=== PATIENT | male | born 1990 | race Caucasian/White ===

== ENCOUNTER 2016-12-11 23:12 | Emergency (ER) | payer OTHER ==
--- NOTE | 2016-12-12 03:06 | ED ORDER SUMMARY ---
..... Patient: MICHAELA KIMBROUGH OrderSheet [facility] VisitID: [id number] [place] [address] 26y, M Registration Date/Time: 12/11/2016 ORDER SHEET Weight: 77.1 kg (stated) Allergies: Penicillin GENERAL ORDERS: CBC w Diff Urgent (23:41 [facility] (Ack 23:43 [facility]) (23:57 EHassan R.N.) CMP Urgent (23:41 12/11/2016 [facility] (Ack 23:43 [facility]) (23:57 EHassan R.N.) Ethyl Alcohol Ur[facility] (23:41 [facility]2016 [facility] ([facility]ck 23:43 [facility]) (23:57 EHassan R.N.) Lipase Urgent (23:41 12/11/2016 [facility] (Ack 23:43 [facility]) (23:57 EHassan R.N.) Chest 2V Urgent (23:42 12/11/2016 [facility] (Ack 23:44 [facility]) (23:56 EHassan R.N.) Cervical Spine 2 or 3V Urgent (23:42 12/11/2016 [facility] (Ack 23:44 [facility]) (23:56 EHassan R.N.) Thoracic Spine 2V Urgent (23:42 12/11/2016 [facility] (Ack 23:44 [facility]) (23:56 EHassan R.N.) Lumbar Spine 2 or 3V Urgent (23:42 12/11/2016 [facility] (Ack 23:44 [facility]) (23:56 EHassan R.N.) Clavicle Left Urgent (23:43 12/11/2016 [facility] (Ack 23:44 [facility]) (23:56 EHassan R.N.) Urine Drug Screen Urgent (01:12 12/12/2016 [facility]) (Ack 1:18 [facility]) (2:51 Ludin R.N.) UA-Culture if indicated Urgent (01:12 12/12/2016 [facility]) (Ack 1:18 Feliz) (2:51 Ludin R.N.) MEDICATION ORDERS: IV FLUIDS: IV NS : initial bolus 1000 mL (1000 mL/hr), then 500 mL/hr for X2 (NOW) (23:40 12/11/2016 [facility]) (0:37 EHassan R.N.) Zofran IV 4 mg (NOW) (23:41 12/11/2016 [facility]) (0:42 EHassan R.N.) Toradol IV 15 mg (NOW) (23:43 12/11/2016 [facility]) (0:37 EHassan R.N.) ORDER SHEET NOTES: [Electronically signed by Benjamin Felix R.N. (03:02 12/12/2016)] [Electronically locked/signed by Benjamin Felix R.N. (03:02 12/12/2016)]
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
--- NOTE | 2016-12-12 03:06 | ED ORDER SUMMARY ---
..... Patient: MICHAELA KIMBROUGH OrderSheet [facility] VisitID: [id number] [place] [address] 26y, M Registration Date/Time: 12/11/2016 ORDER SHEET Weight: 77.1 kg (stated) Allergies: Penicillin GENERAL ORDERS: CBC w Diff Urgent (23:41 [facility] (Ack 23:43 [facility]) (23:57 EHassan R.N.) CMP Urgent (23:41 12/11/2016 [facility] (Ack 23:43 [facility]) (23:57 EHassan R.N.) Ethyl Alcohol Urgent (23:41 [facility] (Ack 23:43 [facility]) (23:57 EHassan R.N.) Lipase Urgent (23:41 [facility]/11[facility]2016 [facility] (Ack 23:43 [facility]) (23:57 EHassan R.N.) Chest 2V Urgent (23:42 [facility]2016 [facility] (Ack 23:44 [facility]) (23:56 EHassan R.N.) Cervical Spine 2 or 3V Urgent (23:42 12/11/2016 [facility] (Ack 23:44 [facility]) (23:56 EHassan R.N.) Thoracic Spine 2V Urgent (23:42 [facility]/11[facility]2016 [facility] (Ack 23:44 [facility]) (23:56 EHassan R.N.) Lumbar Spine 2 or 3V Urgent (23:42 12/11/2016 [facility]) (Ack 23:44 [facility]) (23:56 EHassan R.N.) Clavicle Left Urgent (23:43 [facility]/11/2016 [facility] (Ack 23:44 [facility]) (23:56 EHassan R.N.) Urine Drug Screen Urgent (01:12 [facility]/12/2016 [facility] (Ack 1:18 [facility]) (2:51 Ludin R.N.) UA-Culture if indicated Urgent (01:12 12/12/2016 [facility]) (Ack 1:18 Feliz) (2:51 Ludin R.N.) MEDICATION ORDERS: IV FLUIDS: IV NS : initial bolus 1000 mL (1000 mL/hr), then 500 mL/hr for X2 (NOW) (23:40 12/11/2016 [facility]) (0:37 EHassan R.N.) Zofran IV 4 mg (NOW) (23:41 12/11/2016 [facility]) (0:42 EHassan R.N.) Toradol IV 15 mg (NOW) (23:43 12/11/2016 [facility]) (0:37 EHassan R.N.) ORDER SHEET NOTES: [Electronically signed by Benjamin Felix R.N. (03:02 12/12/2016)] [Electronically locked/signed by Benjamin Felix R.N. (03:02 12/12/2016)]
--- NOTE | 2016-12-12 04:44 | ED MAR SUMMARY ---
..... Medication Administration Record [facility] [address] [place] [address] Patient: MICHAELA KIMBROUGH Visit ID: [id number] 26y, M Weight: 77.1 kg Height/Length: 69 in BMI: 25.1 ALLERGIES: Penicillin Start 00:37 12/12/2016 Uzma Lopez R.N. Medication Administered: IV NS (SALINE), Dose: IV Fluids over 1 hour(s), Rate: 999 mL/hr, Dispensed: 1000 mL bag, Site: #1 right hand. Medication Ordered: IV NS : initial bolus 1000 mL (1000 mL/hr), then 500 mL/hr for X2 (NOW). Given 00:37 12/12/2016 Uzma Lopez R.N. Medication Administered: TORADOL [IVP], Dose: 15 mg IVP over 30 second(s), Site: #1 right hand. Medication Ordered: Toradol IV 15 mg (NOW). Given 00:42 12/12/2016 Uzma Lopez RJayneN. Medication Administered: ZOFRAN [IVP] (ONDANSETRON HCL), Dose: 4 mg IVP over 2 minute(s), Site: #1 right hand. Medication Ordered: Zofran IV 4 mg (NOW).
--- NOTE | 2016-12-12 04:44 | ED MED RECONCILIATION SUMMARY ---
Patient: MICHAELA KIMBROUGH Medication Reconciliation Report [facility] VisitID: [id number] [address] [place] [address] 26y, M Registration Date/Time: 12/11/2016 Weight: 77.1 kg Height/Length: 69 in. BMI: 25.1 ALLERGIES: Penicillin The patient's Home Medications are listed below: CONTINUE TAKING THE FOLLOWING MEDICATIONS: Advair Diskus Inhalation Albuterol Sulfate Inhalation The source(s) of the original Home Medication information: patient The following Medications were given to the patient in the Emergency Department: IV NS IV Fluids bolus 0, then 999 mL/hr, administered: 12/12/2016 12:37:00 AM Toradol [IVP] IVP 15 mg, administered: 12/12/2016 12:37:00 AM Zofran [IVP] IVP 4 mg, administered: 12/12/2016 12:42:00 AM The following Medications were prescribed to the patient: Acetaminophen (available over the counter): take according to label instructions. -- Checo Martino DO Ibuprofen 600mg tablets: take 1 tablet orally every 8 hours as needed for pain. Dispense thirty (30). No refills. -- Checo Martino DO Flexeril 10 mg: Take 1 orally every 8 hours as needed for muscle spasm. Dispense twenty (20). No refills. Substitution is permissible. -- Checo Martino DO
--- NOTE | 2016-12-12 04:44 | ED MED RECONCILIATION SUMMARY ---
Patient: MICHAELA KIMBROUGH Medication Reconciliation Report [facility] VisitID: [id number] [address] [place] [address] 26y, M Registration Date/Time: 12/11/2016 Weight: 77.1 kg Height/Length: 69 in. BMI: 25.1 ALLERGIES: Penicillin The patient's Home Medications are listed below: CONTINUE TAKING THE FOLLOWING MEDICATIONS: Advair Diskus Inhalation Albuterol Sulfate Inhalation The source(s) of the original Home Medication information: patient The following Medications were given to the patient in the Emergency Department: IV NS IV Fluids bolus 0, then 999 mL/hr, administered: 12/12/2016 12:37:00 AM Toradol [IVP] IVP 15 mg, administered: 12/12/2016 12:37:00 AM Zofran [IVP] IVP 4 mg, administered: 12/12/2016 12:42:00 AM The following Medications were prescribed to the patient: Acetaminophen (available over the counter): take according to label instructions. -- Checo Martino DO Ibuprofen 600mg tablets: take 1 tablet orally every 8 hours as needed for pain. Dispense thirty (30). No refills. -- Checo Martino DO Flexeril 10 mg: Take 1 orally every 8 hours as needed for muscle spasm. Dispense twenty (20). No refills. Substitution is permissible. -- Checo Martino DO
--- NOTE | 2016-12-12 04:44 | ED MAR SUMMARY ---
..... Medication Administration Record [facility] [address] [place] [address] Patient: MICHAELA KIMBROUGH Visit ID: [id number] 26y, M Weight: 77.1 kg Height/Length: 69 in BMI: 25.1 ALLERGIES: Penicillin Start 00:37 12/12/2016 Uzma Lopez R.N. Medication Administered: IV NS (SALINE), Dose: IV Fluids over 1 hour(s), Rate: 999 mL/hr, Dispensed: 1000 mL bag, Site: #1 right hand. Medication Ordered: IV NS : initial bolus 1000 mL (1000 mL/hr), then 500 mL/hr for X2 (NOW). Given 00:37 12/12/2016 Uzma Lopez R.N. Medication Administered: TORADOL [IVP], Dose: 15 mg IVP over 30 second(s), Site: #1 right hand. Medication Ordered: Toradol IV 15 mg (NOW). Given 00:42 12/12/2016 Uzma Lopez RJayneN. Medication Administered: ZOFRAN [IVP] (ONDANSETRON HCL), Dose: 4 mg IVP over 2 minute(s), Site: #1 right hand. Medication Ordered: Zofran IV 4 mg (NOW).
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
--- NOTE | 2016-12-12 05:59 | DIAGNOSTIC IMAGING REPORT ---
PROCEDURE: XR CLAVICLE - LEFT INDICATION: TRAUMA/INJURY TECHNIQUE: Two views. COMPARISON: None. FINDINGS: Osseous structures are normal. IMPRESSION: 1. Normal left clavicle.
--- NOTE | 2016-12-12 05:59 | DIAGNOSTIC IMAGING REPORT ---
PROCEDURE: XR CLAVICLE - LEFT INDICATION: TRAUMA/INJURY TECHNIQUE: Two views. COMPARISON: None. FINDINGS: Osseous structures are normal. IMPRESSION: 1. Normal left clavicle.
--- NOTE | 2016-12-12 06:04 | DIAGNOSTIC IMAGING REPORT ---
PROCEDURE: XR THORACIC SPINE 2 VIEWS INDICATION: TRAUMA/INJURY TECHNIQUE: Two views. COMPARISON: None. FINDINGS: Osseous structures and disc spaces are normal. IMPRESSION: 1. Normal thoracic spine.
--- NOTE | 2016-12-12 06:04 | DIAGNOSTIC IMAGING REPORT ---
PROCEDURE: XR LUMBAR SPINE 2 OR 3 VIEWS INDICATION: TRAUMA/INJURY TECHNIQUE: Two views. COMPARISON: None. FINDINGS: Osseous structures and disc spaces are normal. No evidence of an acute process or fracture. IMPRESSION: 1. Negative lumbar spine.
--- NOTE | 2016-12-12 06:04 | DIAGNOSTIC IMAGING REPORT ---
PROCEDURE: XR THORACIC SPINE 2 VIEWS INDICATION: TRAUMA/INJURY TECHNIQUE: Two views. COMPARISON: None. FINDINGS: Osseous structures and disc spaces are normal. IMPRESSION: 1. Normal thoracic spine.
--- NOTE | 2016-12-12 06:05 | DIAGNOSTIC IMAGING REPORT ---
PROCEDURE: XR CHEST 2 VIEW INDICATION: CHEST PAIN TECHNIQUE: PA and lateral views. COMPARISON: None. FINDINGS: Lungs are clear. Heart and mediastinum are normal. Thorax is normal. IMPRESSION: 1. Negative chest.
--- NOTE | 2016-12-12 06:38 | DIAGNOSTIC IMAGING REPORT ---
PROCEDURE: XR CERVICAL SPINE 2 OR 3 VIEW INDICATION: NECK TRAUMA/INJURY TECHNIQUE: Three views. COMPARISON: None. 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 Osseous structures and disc spaces are within normal limits. No evidence of an acute process or fracture. IMPRESSION: 1. Negative cervical spine. 2. Findings discussed with Dr. Martino.
== END 2016-12-12 03:29 | disposition home or self-care (01) ==
LOC: ED SRH 23:12
DX: S16.1XXA Strain of muscle, fascia and tendon at neck level, initial encounter (principal); S39.012A Strain of muscle, fascia and tendon of lower back, initial encounter; S20.01XA Contusion of right breast, initial encounter; S40.012A Contusion of left shoulder, initial encounter; I10 Essential (primary) hypertension; Y04.0XXA Assault by unarmed brawl or fight, initial encounter; Y92.9 Unspecified place or not applicable; F10.120 Alcohol abuse with intoxication, uncomplicated; F14.14 Cocaine abuse with cocaine-induced mood disorder; Y99.9 Unspecified external cause status